=== PATIENT | female | born 2000 | race Caucasian/White ===

== ENCOUNTER 2021-07-08 17:47 | Emergency (ER) | payer OTHER ==
[~2021-07-08] VITALS: Ht 170.2 cm; Wt 132.2 kg
[2021-07-08 18:40] LABS: HEMATOCRIT 40.7 % (36.0-47.0); MEAN CORPUSCULAR HEMOGLOBIN 26.8 pg (27.0-33.0); MEAN CORPUSCULAR HGB CONC 31.9 g/dl (32.0-36.5); MEAN CORPUSCULAR VOLUME 83.9 fl (80.0-96.0); PLATELET COUNT, AUTOMATED 335 10^3/uL (150-450); RED BLOOD COUNT 4.85 10^6/uL (4.00-5.40); WHITE BLOOD COUNT 8.7 10^3/uL (4.0-10.0)
--- NOTE | 2021-07-08 18:54 | REP ---
INDICATION: irregular vaginal bleeding. COMPARISON: None. TECHNIQUE: Transabdominal ultrasound evaluation of the pelvis was performed. FINDINGS: The uterus measures 7.7 x 4.8 x 4.1 cm. The endometrium measures 2 mm in thickness. The right ovary measures 4.0 x 2.0 x 1.5 cm. The resistive index is 0.63. The left ovary measures 4.5 x 1.9 x 1.8 cm. The resistive index is 0.56. There are no abnormal masses or fluid collections. IMPRESSION: The uterus and ovaries are unremarkable. <Electronically signed by Wale Romo > 07/08/21 [id number]
--- OUTSIDE RECORDS SUMMARY | 2021-07-08 19:14 | CCD ---
Author Author [facility] Organization [facility] Address Unknown Phone Unavailable Care Team Providers Care Sheet Music Salesperson Name Role Phone RING, K RAZIA PA Unavailable Unavailable RING, K RAZIA PA Unavailable Unavailable RING, K RAZIA PA Unavailable Unavailable RING, K RAZIA PA Unavailable Unavailable RING, K RAZIA PA Unavailable Unavailable RING, K RAZIA PA Unavailable Unavailable RING, K RAZIA PA Unavailable Unavailable RING, K RAZIA PA Unavailable Unavailable RING, K RAZIA PA Unavailable Unavailable RING, K RAZIA PA Unavailable Unavailable RING, K RAZIA PA Unavailable Unavailable RING, K RAZIA PA Unavailable Unavailable RING, K RAZIA PA Unavailable Unavailable RING, K RAZIA PA Unavailable Unavailable RING, K RAZIA PA Unavailable Unavailable RING, K RAZIA PA Unavailable Unavailable RING, K RAZIA PA Unavailable Unavailable RING, K RAZIA PA Unavailable Unavailable RING, K RAZIA PA Unavailable Unavailable RING, K RAZIA PA Unavailable Unavailable RING, K RAZIA PA Unavailable Unavailable Re-disclosure Warning The records that you are about to access may contain information from federally-assisted alcohol or drug abuse programs. If such information is present, then the following federally mandated warning applies: This information has been disclosed to you from records protected by federal confidentiality rules (42 CFR part 2). The federal rules prohibit you from making any further disclosure of this information unless further disclosure is expressly permitted by the written consent of the person to whom it pertains or as otherwise permitted by 42 CFR part 2. A general authorization for the release of medical or other information is NOT sufficient for this purpose. The Federal rules restrict any use of the information to criminally investigate or prosecute any alcohol or drug abuse patient.The records that you are about to access may contain highly sensitive health information, the redisclosure of which is protected by Article 27-F of the [place] Public Health law. If you continue you may have access to information: Regarding HIV / AIDS; Provided by facilities licensed or operated by the [place] Office of Mental Health; or Provided by the [place] [facility] Office for People With Developmental Disabilities. If such information is present, then the following [facility] [facility] mandated warning applies: This information has been disclosed to you from confidential records which are protected by state law. State law prohibits you from making any further disclosure of this information without the specific written consent of the person to whom it pertains, or as otherwise permitted by law. Any unauthorized further disclosure in violation of state law may result in a fine or nursing home sentence or both. A general authorization for the release of medical or other information is NOT sufficient authorization for further disc losure. Encounters Encounter Providers Location Date Indications Data Source(s ) Outpatient Attender: RAZIA Akers Primary 07/08/2021 03:05:00 PM EDT [facility] ([facility], [facility]) Medications No Information Insurance Providers Payer name Policy type / Coverage type Policy ID Covered libertarian ID Covered libertarian's relationship to pineda Policy Pineda Plan Information [facility] [id number] [facility] [id number] Problems, Conditions, and Diagnoses No Information Surgeries/Procedures Procedure Description Date Indications Data Source(s) OFFICE OUTPATIENT NEW 45 MINUTES 07/08/2021 12:00:00 A M EDT [facility] ([facility], [facility]) Results ID Date Data Source [id number] 07/08/2021 05:28:00 PM EDT [facility] ([facility], [facility]) Name Value Range Interpretation Code Description Data Benita rce(s) Supporting Document(s) Bacteria identified in Urine by Culture Laboratory test result [facility] ([facility], [facility]) Procedure Social History Code Duration Value Status Description Data Source(s ) Smoking 07/08/2021 12:00:00 AM EDT Patient has never smoked co mpleted Patient has never smoked [facility] ([facility], [facility]) Vital Signs ID Date Data Source UNK Name Value Range Interpretation Code Description Data Source(s) Systolic blood pressure 134 mm[Hg] 134 mm[Hg] [facility] ([facility], [facility]) Diastolic blood pressure 88 mm[Hg] 88 mm[Hg] [facility] ([facility], [facility]) Heart rate 112 /min 112 /min [facility] ([facility], [facility]) Respiratory rate 18 /min 18 /min [facility] ( [facility], [facility]) Oxygen saturation in Arterial blood by Pulse oximetry 98 % 98 % [facility] ([facility], [facility]) Body temperature 98.4 [degF] 98.4 [degF] [facility] ([facility], [facility]) Body weight 294.00 [lb_av] 294.00 [lb_av] [facility]) Body height 57 [in_i] 57 [in_i] [facility] ([facility] 4'9" Body mass index (BMI) [Ratio] 63.6 kg/m2 63.6 k g/m2 [facility] ([facility])
[2021-07-08 19:39] VITALS: BP 131/82
== END 2021-07-08 19:46 | disposition home or self-care (01) ==
LOC: M ED 17:47
DX: N93.8 Other specified abnormal uterine and vaginal bleeding (principal)

== ENCOUNTER → 2021-07-08 | Outpatient (REF) | payer OTHER ==
[2021-07-09 12:44] LABS: GC DNA AMPLIFICATION NEGATIVE (NEGATIVE)
== END ==
LOC: M LAB REF 10:00
PROVIDERS: ATTEND Physician Assistant
DX: N93.9 Abnormal uterine and vaginal bleeding, unspecified (principal)

== ENCOUNTER 2021-10-21 15:31 | Emergency (ER) | payer OTHER ==
[~2021-10-21] VITALS: Ht 170.2 cm; Wt 132.7 kg
[2021-10-21 15:44] VITALS: BP 141/91
[2021-10-21] MEDS ORDERED: BACTRIM 160MG/800MG DS TAB PO ONE (17:25)
[2021-10-21] MEDS ORDERED: KETOROLAC TROMETHAMINE 10 MG TAB PO ONE (17:25)
[2021-10-21] MEDS ORDERED: BACT800T5 PO (17:32)
== END 2021-10-21 17:46 | disposition home or self-care (01) ==
LOC: M ED 15:31
DX: L02.211 Cutaneous abscess of abdominal wall (principal); Z77.098 Contact with and (suspected) exposure to other hazardous, chiefly nonmedicinal, chemicals; E66.9 Obesity, unspecified

== ENCOUNTER 2022-10-25 15:47 | Emergency (ER) | payer OTHER ==
[~2022-10-25] VITALS: Ht 170.2 cm; Wt 128.3 kg
[~2022-10-25 15:47] MED LIST: BACT800T5 PO
[2022-10-25 15:48] VITALS: BP 131/89
== END 2022-10-25 19:41 | disposition left against medical advice (07) ==
LOC: M ED 15:47
DX: Z53.21 Procedure and treatment not carried out due to patient leaving prior to being seen by health care provider (principal)

== ENCOUNTER 2023-02-04 09:13 | Inpatient (IN) | payer OTHER ==
[~2023-02-04] VITALS: Ht 170.2 cm; Wt 46.0 kg
[~2023-02-04 09:13] MED LIST changes: +FLUoxetine 10 MG CAP PO SCH
[2023-02-04 10:12] LABS: HEMATOCRIT 37.4 % (36.0-47.0); HEMOGLOBIN 12.3 g/dl (12.0-15.5); MEAN CORPUSCULAR HEMOGLOBIN 26.5 pg (27.0-33.0); MEAN CORPUSCULAR HGB CONC 32.9 g/dl (32.0-36.5); MEAN CORPUSCULAR VOLUME 80.4 fl (80.0-96.0); PLATELET COUNT, AUTOMATED 265 10^3/uL (150-450); RED BLOOD COUNT 4.65 10^6/uL (4.00-5.40); WHITE BLOOD COUNT 7.6 10^3/uL (4.0-10.0)
[2023-02-04 10:34] LABS: ETHYL ALCOHOL (ETHANOL) < 0.003 % (0.000-0.010)
[2023-02-04 10:37] LABS: ACETAMINOPHEN LEVEL < 2.0 UG/ML (10.0-20.0); ALBUMIN 3.4 G/DL (3.2-5.2); ALKALINE PHOSPHATASE 35 U/L (46-116); ALT/SGPT 16 U/L (7.0-40); AST/SGOT 13 U/L (<34); BILIRUBIN,DIRECT < 0.1 MG/DL (<0.4); BILIRUBIN,TOTAL 0.2 MG/DL (0.3-1.2); BLOOD UREA NITROGEN 10 MG/DL (9-23); CARBON DIOXIDE LEVEL 22 MMOL/L (20-31); CHLORIDE LEVEL 104 MMOL/L (98-107); CREATININE FOR GFR 0.56 MG/DL (0.55-1.30); GLOMERULAR FILTRATION RATE > 60.0 (>60); GLUCOSE, FASTING 110 MG/DL (60-100); POTASSIUM SERUM 3.8 MMOL/L (3.5-5.1); SALICYLATE LEVEL 3.3 MG/DL (<30); SODIUM LEVEL 138 MMOL/L (136-145); TOTAL PROTEIN 6.9 G/DL (5.7-8.2)
[2023-02-04 10:47] LABS: HCG, SERUM QUALITATIVE POSITIVE (NEGATIVE)
[2023-02-04] MEDS ORDERED: VITA100093 PO (11:35)
[2023-02-04] MEDS ORDERED: PRENTAB9 PO (11:38)
[2023-02-04] MEDS ORDERED: FLUO10CA18 PO (11:38)
[2023-02-04] MEDS ORDERED: HOME MED LIST COMPLETE! XX SCH (11:40)
[2023-02-04 11:44] LABS: AMPHETAMINES LEVEL URINE NEGATIVE (NEGATIVE); BARBITURATES URINE NEGATIVE (NEGATIVE); BENZODIAZEPINES URINE NEGATIVE (NEGATIVE)
[2023-02-04 11:45] LABS: CANNABINOIDS URINE NEGATIVE (NEGATIVE); COCAINE METABOLITE URINE NEGATIVE (NEGATIVE); METHADONE URINE NEGATIVE (NEGATIVE); OPIATES URINE NEGATIVE (NEGATIVE); PHENCYCLIDINE URINE NEGATIVE (NEGATIVE)
[2023-02-04] MEDS ORDERED: traZODone 50 MG TAB PO PRN (13:55)
[2023-02-04] MEDS ORDERED: MOM 30ML SUSPENSION UDC PO PRN (13:55)
[2023-02-04] MEDS ORDERED: diphenhydrAMINE 25MG CAP PO PRN (13:55)
[2023-02-04] MEDS ORDERED: MAALOX 30 ML SUSP *UDC PO PRN (13:55)
[2023-02-04] MEDS ORDERED: IBUPROFEN 400MG TAB PO PRN (13:55)
[2023-02-04] MEDS ORDERED: ACETAMINOPHEN TAB 650MG DOSE (2X325MG) PO PRN (13:55)
[2023-02-04] MEDS: VITAMIN D 1,000 INTERNATIONAL UNITS TABLET PO SCH (19:02)
[2023-02-05 06:39] VITALS: BP 143/77
[2023-02-05 07:04] LABS: BASO % 0.6 % (0.0-1.0); EOS # 0.1 10^3/uL (0.0-0.5); HEMATOCRIT 36.6 % (36.0-47.0); HEMOGLOBIN 11.7 g/dl (12.0-15.5); LYMPH # 2.2 10^3/uL (1.5-5.0); LYMPH % 32.4 % (24.0-44.0); MEAN CORPUSCULAR HEMOGLOBIN 26.6 pg (27.0-33.0); MEAN CORPUSCULAR VOLUME 83.2 fl (80.0-96.0); MONO # 0.6 10^3/uL (0.0-0.8); MONO % 8.5 % (2.0-8.0); NEUTROPHILS # 3.9 10^3/uL (1.5-8.5); NEUTROPHILS % 57.4 % (36.0-66.0); PLATELET COUNT, AUTOMATED 241 10^3/uL (150-450); WHITE BLOOD COUNT 6.8 10^3/uL (4.0-10.0)
[2023-02-05 07:31] LABS: ALKALINE PHOSPHATASE 31 U/L (46-116); ALT/SGPT 14 U/L (7.0-40); AST/SGOT 12 U/L (<34); BILIRUBIN,TOTAL 0.2 MG/DL (0.3-1.2); BLOOD UREA NITROGEN 9 MG/DL (9-23); CALCIUM LEVEL 8.1 MG/DL (8.5-10.1); CARBON DIOXIDE LEVEL 24 MMOL/L (20-31); CHLORIDE LEVEL 105 MMOL/L (98-107); CREATININE FOR GFR 0.58 MG/DL (0.55-1.30); GLOMERULAR FILTRATION RATE > 60.0 (>60); GLUCOSE, FASTING 80 MG/DL (60-100); POTASSIUM SERUM 4.1 MMOL/L (3.5-5.1); SODIUM LEVEL 137 MMOL/L (136-145); TOTAL PROTEIN 6.2 G/DL (5.7-8.2)
[2023-02-05] MEDS: VITAMIN D 1,000 INTERNATIONAL UNITS TABLET PO SCH (09:48)
[2023-02-05] MEDS: FLUoxetine 10 MG CAP PO SCH (09:48)
[2023-02-05] MEDS: PRENATAL VITAMINS CHEWABLE TABLET PO SCH (09:50)
[2023-02-05 16:32] VITALS: BP 139/75
[2023-02-06 06:25] VITALS: BP 135/85
[2023-02-06] MEDS: PRENATAL VITAMINS CHEWABLE TABLET PO SCH (09:05)
[2023-02-06] MEDS: VITAMIN D 1,000 INTERNATIONAL UNITS TABLET PO SCH (09:05)
[2023-02-06] MEDS: FLUoxetine 10 MG CAP PO SCH (09:06)
[2023-02-06 18:34] VITALS: BP 151/89
[2023-02-06 19:52] VITALS: BP 142/78
[2023-02-07 06:39] VITALS: BP 130/74
[2023-02-07] MEDS: PRENATAL VITAMINS CHEWABLE TABLET PO SCH (08:28)
[2023-02-07] MEDS: VITAMIN D 1,000 INTERNATIONAL UNITS TABLET PO SCH (08:28)
[2023-02-07] MEDS: FLUoxetine 10 MG CAP PO SCH (08:28)
[2023-02-07] MEDS ORDERED: FLUO10CA18 PO (10:27)
== END 2023-02-07 12:52 | disposition home or self-care (01) | DRG 832 ==
LOC: M ED 09:13 → M ED INP 14:06 → M PSY 17:01
PROVIDERS: ADMIT Psychiatry & Neurology Psychiatry; ATTEND Psychiatry & Neurology Psychiatry
DX: O99.341 Other mental disorders complicating pregnancy, first trimester (principal); F32.1 Major depressive disorder, single episode, moderate; R45.851 Suicidal ideations; F41.9 Anxiety disorder, unspecified; Z3A.11 11 weeks gestation of pregnancy; Z79.899 Other long term (current) drug therapy; O99.211 Obesity complicating pregnancy, first trimester; Z91.51 Personal history of suicidal behavior

== ENCOUNTER 2023-08-15 15:21 | Inpatient (IN) | payer OTHER ==
[~2023-08-15] VITALS: Ht 170.2 cm; Wt 145.2 kg
[2023-08-15] VITALS (30 sets, daily range): BP systolic 97–194; BP diastolic 53–118; O2SAT 97
[~2023-08-15 15:21] MED LIST changes: +FLUO10CA18 PO; -FLUoxetine 10 MG CAP PO SCH; +PRENTAB9 PO; +VITA100093 PO
[2023-08-15] MEDS ORDERED: LACTATED RINGER'S 1000 ML IV STA (15:29)
[2023-08-15] MEDS ORDERED: METHYLERGONOVINE MALEATE 0.2MG/ML 1ML VIAL IM PRN (15:30)
[2023-08-15] MEDS ORDERED: TRANEXAMIC ACID INJection 1,000 MG in NS 100 ML IV PRN (15:30)
[2023-08-15] MEDS ORDERED: OXYTOCIN DRIP 30 UNITS in IV 1 EA IV PRN ×6 (15:30)
[2023-08-15] MEDS ORDERED: CARBOPROST TROMETHAMINE 250 MCG/ML AMP IM PRN (15:30)
[2023-08-15] MEDS ORDERED: LIDOCAINE 1% MDV 20ML VIAL INFIL PRN (15:30)
[2023-08-15] MEDS ORDERED: OXYTOCIN INJ 10UNITS/ML 1ML VIAL IM PRN (15:30)
[2023-08-15] MEDS ORDERED: LR 1,000 ML IV SCH (15:30)
[2023-08-15] MEDS ORDERED: VITA100T98 PO (15:34)
[2023-08-15] MEDS ORDERED: MAGN400C2 PO (15:35)
[2023-08-15] MEDS ORDERED: HOME MED LIST COMPLETE! XX SCH (15:35)
[2023-08-15 16:31] LABS: HEMATOCRIT 34.7 % (36.0-47.0); HEMOGLOBIN 11.3 g/dl (12.0-15.5); MEAN CORPUSCULAR HEMOGLOBIN 27.4 pg (27.0-33.0); MEAN CORPUSCULAR HGB CONC 32.6 g/dl (32.0-36.5); MEAN CORPUSCULAR VOLUME 84.2 fl (80.0-96.0); PLATELET COUNT, AUTOMATED 229 10^3/uL (150-450); RED BLOOD COUNT 4.12 10^6/uL (4.00-5.40); WHITE BLOOD COUNT 9.6 10^3/uL (4.0-10.0)
[2023-08-15] MEDS ORDERED: FENTANYL 2MCG/ML ROPIVACAINE 0.2% IN 0.9% NACL 100ML IVBAG As Ordered ONE (16:51)
[2023-08-15 17:01] LABS: LDH LACTATE DEHYDROGENASE 185 U/L (120-246)
[2023-08-15 17:02] LABS: ALT/SGPT 10 U/L (7.0-40); AST/SGOT 14 U/L (<34); BILIRUBIN,TOTAL 0.2 MG/DL (0.3-1.2); CREATININE FOR GFR 0.55 MG/DL (0.55-1.30); GLOMERULAR FILTRATION RATE > 60.0 (>60)
[2023-08-15 17:28] LABS: URIC ACID 5.3 MG/DL (3.1-7.8)
[2023-08-15] MEDS ORDERED: diphenhydrAMINE 50MG/ML VIAL IV PRN (17:50)
[2023-08-15] MEDS ORDERED: NALOXONE INJ 0.4MG/1ML VIAL IV PRN (17:50)
[2023-08-15] MEDS ORDERED: LR 500 ML IV PRN (17:50)
[2023-08-15] MEDS ORDERED: ePHEDrine SULFATE 25 MG/5 ML(5MG/ML) SYRINGE IVP PRN (17:50)
[2023-08-15] MEDS ORDERED: FENTANYL/ROPIVACAINE/NACL BAG 100 ML EPIDURAL SCH (17:50)
[2023-08-15] MEDS ORDERED: EPIDURAL/PCA KEYS XX PRN (17:50)
[2023-08-15] MEDS ORDERED: ONDANSETRON 4MG 2ML VIAL IV PRN (17:50)
[2023-08-15 18:17] LABS: TOTAL PROTEIN,RANDOM URINE 47.3 MG/DL (0.0-14.0)
[2023-08-15 18:22] LABS: CREATININE,RANDOM URINE 153.4 MG/DL
[2023-08-15] MEDS ORDERED: METOCLOPRAMIDE INJ 10MG/2ML VIAL IV PRN (19:05)
[2023-08-15] MEDS ORDERED: METHYLERGONOVINE MALEATE 0.2 MG TAB PO PRN (19:05)
[2023-08-15] MEDS: LR 1,000 ML IV SCH (19:05)
[2023-08-15] MEDS ORDERED: IBUPROFEN 800 MG TAB PO PRN (19:05)
[2023-08-15] MEDS ORDERED: OXYTOCIN DRIP 30 UNITS in IV 1 EA IV SCH ×4 (19:05)
[2023-08-15] MEDS ORDERED: IBUPROFEN 600MG TAB PO PRN (19:05)
[2023-08-15] MEDS ORDERED: MOM 30ML SUSPENSION UDC PO PRN (19:05)
[2023-08-15] MEDS ORDERED: ACETAMINOPHEN 500 MG TAB PO PRN (19:05)
[2023-08-15] MEDS ORDERED: RHOGAM 300MCG (1500IU) INJ IM SCH (19:05)
[2023-08-15] MEDS ORDERED: ACETAMINOPHEN TAB 650MG DOSE (2X325MG) PO PRN (19:05)
[2023-08-15] MEDS ORDERED: DOCUSATE SODIUM 100MG CAPSULE PO PRN (19:05)
[2023-08-15] MEDS ORDERED: DIBUCAINE 1% OINTMENT 30GM TOP PRN (19:05)
[2023-08-15 19:07] LABS: CORD GAS ABE A -7.4; CORD GAS HCO3 A 23.2 MMOL/L; CORD GAS HCO3 V 23.6 MMOL/L; CORD GAS O2 SAT A 56.7 %; CORD GAS O2 SAT V 51.6 %; CORD GAS PCO2 A 70.6 mmHg; CORD GAS PCO2 V 52.9 mmHg; CORD GAS PH A 7.135 UNITS; CORD GAS PH V 7.267 UNITS; CORD GAS PO2 A 32.4 mmHg; CORD GAS PO2 V 26.2 mmHg; CORD GAS SBC A 17.6 MMOL/L; CORD GAS SBC V 20.2 MMOL/L; CORD GAS TCO2 A 25.4 MMOL/L; CORD GAS TCO2 V 25.2 MMOL/L
[2023-08-15] MEDS ORDERED: FLUoxetine 10 MG CAP PO SCH (21:00)
[2023-08-16] MEDS: LR 1,000 ML IV SCH (03:05)
[2023-08-16 06:00] VITALS: BP 131/69; O2SAT 96
[2023-08-16] MEDS ORDERED: PRENATAL VITAMINS CHEWABLE TABLET PO SCH (09:00)
[2023-08-17] MEDS ORDERED: MEASLES,MUMPS,RUBELLA VACCINE INJ (MMR-II) SC.IMMUN ONE (09:00)
== END 2023-08-16 14:30 | disposition home or self-care (01) | DRG 807 ==
LOC: M LDO 15:21 → M LDI 15:24 → M OBS 21:10
PROVIDERS: ADMIT Obstetrics & Gynecology; ATTEND Obstetrics & Gynecology
PROC: 10E0XZZ Delivery of Products of Conception, External Approach (ICD-10-PCS; principal; 2023-08-15)
PROC: 10907ZC Drainage of Amniotic Fluid, Therapeutic from Products of Conception, Via Natural or Artificial Opening (ICD-10-PCS; 2023-08-15)
DX: O14.04 Mild to moderate pre-eclampsia, complicating childbirth (principal); Z37.0 Single live birth; Z3A.38 38 weeks gestation of pregnancy; O69.81X0 Labor and delivery complicated by cord around neck, without compression, not applicable or unspecified; O77.0 Labor and delivery complicated by meconium in amniotic fluid; O76 Abnormality in fetal heart rate and rhythm complicating labor and delivery

== ENCOUNTER 2023-08-22 18:50 | Emergency (ER) | payer OTHER ==
[~2023-08-22] VITALS: Ht 170.2 cm; Wt 133.3 kg
[~2023-08-22 18:50] MED LIST changes: +MAGN400C2 PO; +VITA100T98 PO
[2023-08-22 18:51] VITALS: BP 165/98; TEMP 97.7; O2SAT 97
== END 2023-08-22 21:09 | disposition left against medical advice (07) ==
LOC: M ED 18:50
DX: Z53.21 Procedure and treatment not carried out due to patient leaving prior to being seen by health care provider (principal)